=== PATIENT | male | born 1930 | race Caucasian/White ===

== ENCOUNTER 2017-01-05 19:09 | Inpatient (IN) | payer MEDICARE, BC ==
[~2017-01-05] VITALS: Ht 177.8 cm; Wt 50.1 kg
--- NOTE | ~2017-01-05 | DS ---
Discharge Summary [facility] [address] [place]. [address] NAME: CURTIS SOLIS : 34 STATUS : ADM IN [facility]#: [id number] AGE: 86 ADM/REG DATE : 01/05/17 MR#: [id number] REPORT SERV DATE: 01/07/17 DICTATED BY: LAVINIA BUSTOS DATE: 01/07/17 REPORT STATUS : Draft TRANSCRIBED BY: MODL DATE: 01/07/17 ADMISSION DATE: 01/05/2017 DISCHARGE DATE: 01/07/2017 DISCHARGE DIAGNOSES: 1. Acute kidney injury on chronic kidney disease, improved back to his baseline with gentle hydration. 2. Dehydration. 3. Hypertension. 4. Hematuria on the urinalysis. Has no pain or no evidence of infection. The patient will need a benefit from Urology evaluation. HISTORY OF PRESENT ILLNESS: This is an 86-year-old male patient who came to the hospital with severe weakness. Please see dictated H and P. HOSPITAL COURSE: He was admitted to hospital with acute kidney injury with generalized weakness. Please see dictated H and P. The patient was admitted to hospital and improved with gentle hydration. He also evaluated with echocardiogram and renal ultrasound, which was all negative for any acute disease. However, the patient had an episode of hypertension and received hydralazine. After that, he had a very severe reaction to it including short of breath and restless. But it eventually cleared out by himself. However, at night he was a little bit anxious mood because of the different surrounding and he was given a small dose, 0.5 mg IV of Ativan and that made him very agitated and almost hallucinating. However, it is cleared by himself without any problems. At this current point of discharge, the patient is awake, alert, not in acute distress, and he is oriented x3. Therefore, we are going to put hydralazine and Ativan to his allergy list because of the intolerance for the future use. I explained to the family and the patient and they all voiced understanding. DISCHARGE MEDICATIONS: 1. Continue vitamin D once a day. 2. Simvastatin 40 mg once at nighttime. 3. Finasteride 5 mg once at nighttime. 4. Megace 800 mg once a day. 5. Plavix 75 mg once a day. DISPOSITION: The patient is discharged to home in stable condition. TIME SPENT: More than 30 minutes in patient education and discharge coordination. EKL/MODL Discharge Summary [place] [address] [place] [id number] NAME: CURTIS SOLIS : 32 STATUS : ADM IN [facility]#: [id number] AGE: 86 ADM/REG DATE : 01/05/17 MR#: [id number] REPORT SERV DATE: 01/07/17 DICTATED BY: LAVINIA BUSTOS DATE: 01/07/17 REPORT STATUS : Draft TRANSCRIBED BY: MODL DATE: 01/07/17 Lavinia Bustos M.D. / [id number] CC: Jesse Irvin M.D.
--- NOTE | ~2017-01-05 | HP ---
History And Physical [place] [id number] [facility] [place]. [address] NAME: CURTIS SOLIS : 34 STATUS : ADM IN [facility]#: [id number] AGE: 86 ADM/REG DATE : 01/05/17 MR#: [id number] REPORT SERV DATE: 01/06/17 DICTATED BY: ALESSANDRA LAUREANO DATE: 01/05/17 REPORT STATUS : Draft TRANSCRIBED BY: MODL DATE: 01/05/17 DATE OF ADMISSION: 01/05/2017 CHIEF COMPLAINT: Weakness. HISTORY OF PRESENT ILLNESS: The patient is an 86-year-old white male, history of CVA in distant past, who comes in complaining of increasing weakness, back pain, and decreased appetite over the past three weeks. He came in this morning with these complaints and was sent home with an unremarkable workup. He came back today, feeling weaker, and was noted to be somewhat hypotensive with a systolic blood pressure in the 90s and with also complaint of back pain, and his creatinine had increased from this morning his creatinine was 1.56 and today it had risen to 2.27. The patient denies nausea, vomiting, and diarrhea. He has eaten very little for past three weeks per his family. He has also been a lot less ambulatory. He does state he urinates every 2 hours. However, bladder scan revealed low bladder volume of 125 mL. 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 PAST SURGICAL HISTORY: Tonsillectomy, appendectomy, hernia repair, back surgery, CABG in 1992. SOCIAL HISTORY: He does not currently smoke or drink. Lives with his . He is a full code. FAMILY HISTORY: Both mom and dad of CVA. ALLERGIES: THE PATIENT IS ALLERGIC TO DEMEROL, "DID NOT WORK." MEDICATIONS: Methadone, B12 3000 a day, D3 2000 a day, Zocor 40 mg at bedtime, Plavix 75 mg daily, Flomax "prostate pill" daily, and Megace daily. REVIEW OF SYSTEMS: CONSTITUTIONAL: There are no fever, sweats, or rigors. He does have macular degeneration, so he has had visual acuity loss and poor vision. HEENT: No headache. There is some hearing loss. No tinnitus. CARDIOVASCULAR: No chest pain, palpitations, syncope. No edema. There is a lot of fatigue on exertion. RESPIRATORY: No cough, wheezing, or pleuritic pain. GASTROINTESTINAL: No nausea, vomiting, hematemesis, or abdominal pain. MUSCULOSKELETAL: There are arthralgias, arthritis, and back pain. INTEGUMENT: No rash or suspicious skin lesions. NEUROLOGIC: Denies memory loss. There have been gait disturbance and weakness. HEMATOLOGIC: No anemia, iron deficiency, or B12 deficiency. PSYCHIATRIC: There has been some depression. No bipolar or anxiety. : No dysuria or hematuria. There has been some frequent urination. History And Physical [address] [address] NAME: CURTIS SOLIS : 34 STATUS : ADM IN [facility]#: [id number] AGE: 86 ADM/REG DATE : 01/05/17 MR#: [id number] REPORT SERV DATE: 01/06/17 DICTATED BY: ALESSANDRA LAUREANO DATE: 01/05/17 REPORT STATUS : Draft TRANSCRIBED BY: SHAMA DATE: 01/05/17 ENDOCRINE: There is no diabetes. No known thyroid disease. There is a history of increased cholesterol. PHYSICAL EXAMINATION: VITAL SIGNS: Blood pressure is 90/51, note he is not orthostatic. Temperature 98, pulse 98, respiration 18, O2 saturation 96% on room air. CONSTITUTIONAL: Alert, appropriate. PSYCHIATRIC: Oriented x3. Memory intact. Affect appropriate. HEENT: Atraumatic, normocephalic. Oral palate without lesion. EYES: Pupils are reactive, anicteric. NECK: No adenopathy. Supple. No thyromegaly or masses. RESPIRATORY: Clear to percussion and auscultation. CARDIOVASCULAR: Regular rate and rhythm. No audible murmurs. ABDOMEN: Soft, nontender, nondistended. SKIN: No rash or suspicious lesions. He does have a small bruise on his left hip from prior fall. NEUROLOGIC: The patient can move all four extremities. LYMPHATIC: No adenopathy in the neck, axilla, or femoral region. No peripheral edema. MUSCULOSKELETAL: Range of motion intact in upper and lower extremities. LABORATORY DATA: White count 14.4, hemoglobin 13.7, platelet 291. Sodium 139, potassium 4, BUN 39, creatinine 2.27, glucose 135. Troponin 0.03. Mag 2.4. Urinalysis, unremarkable. Chest x-ray, unremarkable. IMPRESSION/PLAN: 1. Acute renal failure secondary to dehydration, although the patient did get one dose of lisinopril on his past ER visit. We will give IV fluids. We will obtain renal ultrasound. He was not retaining urine. 2. Fatigue. 3. History of cerebrovascular accident. 4. Anorexia. 5. Weakness. Order physical therapy. 6. Back pain. Lumbar CT was unrevealing except for arthritis. NGM/MODL Alessandra Laureano MD / [id number] CC: Jesse Irvin M.D.
[~2017-01-05 19:09] MED LIST: LORTAB 5 PO; PLAVIX PO; PRIN20 PO; ZOCOR40 PO
[2017-01-05 21:20] LABS: BASOPHILS 0.1 %; BASOPHILS ABSOLUTE 0.01 10/3/uL (0.0-0.16); EOSINOPHILS 1.7 %; EOSINOPHILS ABSOLUTE 0.25 10/3/uL (0.0-0.53); ER CBC TAT 0 Hrs 03 Mins; HEMATOCRIT 39.5 % (40.0-51.0); HEMOGLOBIN 13.7 g/dL (13.6-17.8); IMMATURE GRANULOCYTES 0.6 %; IMMATURE GRANULOCYTES ABSOLUTE 0.09 10/3/uL (0.0-0.11); LYMPHOCYTES 13.4 %; LYMPHOCYTES ABSOLUTE 1.93 10/3/uL (0.67-4.30); MEAN CORPUS HGB CONC 34.7 g/dL (32.0-36.0); MEAN CORPUSCULAR HEMOGLOB 33.8 pg (26.0-34.0); MEAN CORPUSCULAR VOLUME 97.5 fL (80-100); MEAN PLATELET VOLUME 10.4 fL (9.2-13.0); MONOCYTES 11.8 %; NEUTROPHILS 72.4 %; NEUTROPHILS ABSOLUTE 10.46 10/3/uL (2.02-8.40); PLATELET COUNT 291 10/3/uL (150-400); RBC DISTRIBUTION WIDTH 12.3 % (12.0-16.0); RED CELL COUNT 4.05 10/6/uL (4.7-6.1); WHITE BLOOD CELLS 14.4 10/3/uL (4.5-10.5)
[2017-01-05 21:24] LABS: MANUAL DIFF NO %
[2017-01-05 21:27] LABS: PROTIME (NOT ORD) 13.1 SEC (12.0-14.5)
[2017-01-05 21:36] LABS: BUN (BLOOD UREA NITROGEN) 39 MG/DL (6-23); CALCIUM, SERUM 9.4 MG/DL (8.5-10.4); CHEST PAIN PROFILE TAT 0 Hrs 19 Mins; CHLORIDE, SERUM 102 MMOL/L (96-112); CO2 (CARBON DIOXIDE) 27 MMOL/L (24-34); CPK 44 U/L (0-200); CREATININE 2.27 MG/DL (0.70-1.30); GFR AFRICAN AMERICAN 30 ML/MIN (>=60); GFR NON AFRICAN AMERICAN 26 ML/MIN (>=60); GLUCOSE, SERUM 135 MG/DL (60-99); SODIUM, SERUM 139 MMOL/L (135-148); TROPONIN I 0.03 NG/ML (<0.05)
[2017-01-05] MEDS ORDERED: PLAVIX PO (22:22)
[2017-01-05] MEDS ORDERED: ZOCOR40 PO (22:23)
[2017-01-05] MEDS ORDERED: PROSCAR5 PO (22:23)
[2017-01-05] MEDS ORDERED: MEGACEUDL PO (22:24)
[2017-01-05] MEDS ORDERED: CYANO1000T PO (22:24)
[2017-01-05] MEDS ORDERED: VITAMIN D31000 UNIT PO (22:25)
[2017-01-06 05:22] LABS: BASOPHILS 0.2 %; BASOPHILS ABSOLUTE 0.02 10/3/uL (0.0-0.16); EOSINOPHILS 2.2 %; EOSINOPHILS ABSOLUTE 0.26 10/3/uL (0.0-0.53); IMMATURE GRANULOCYTES 0.7 %; IMMATURE GRANULOCYTES ABSOLUTE 0.09 10/3/uL (0.0-0.11); LYMPHOCYTES 13.9 %; LYMPHOCYTES ABSOLUTE 1.68 10/3/uL (0.67-4.30); MEAN CORPUS HGB CONC 33.8 g/dL (32.0-36.0); MEAN CORPUSCULAR VOLUME 97.5 fL (80-100); MEAN PLATELET VOLUME 10.8 fL (9.2-13.0); MONOCYTES 13.9 %; MONOCYTES ABSOLUTE 1.68 10/3/uL (0.21-1.20); NEUTROPHILS 69.1 %; NEUTROPHILS ABSOLUTE 8.34 10/3/uL (2.02-8.40); PLATELET COUNT 249 10/3/uL (150-400); RBC DISTRIBUTION WIDTH 12.7 % (12.0-16.0); RED CELL COUNT 3.64 10/6/uL (4.7-6.1); WHITE BLOOD CELLS 12.1 10/3/uL (4.5-10.5)
[2017-01-06 05:24] LABS: HEMATOCRIT 35.5 % (40.0-51.0); MANUAL DIFF NO %
[2017-01-06 05:34] LABS: CALCIUM, SERUM 8.9 MG/DL (8.5-10.4); CHLORIDE, SERUM 109 MMOL/L (96-112); CO2 (CARBON DIOXIDE) 23 MMOL/L (24-34); GLUCOSE, SERUM 110 MG/DL (60-99); POTASSIUM, SERUM 4.4 MMOL/L (3.5-5.3); SGOT(AST) 12 U/L (5-40); SGPT(ALT) 24 U/L (5-65); SODIUM, SERUM 139 MMOL/L (135-148); TOTAL BILIRUBIN 0.4 MG/DL (0-1.2)
[2017-01-06 05:37] LABS: A/G RATIO 1.2 (0.7-1.9); ALBUMIN 3.2 G/DL (3.5-5.0); ALKALINE PHOSPHATASE 47 U/L (45-117); BUN (BLOOD UREA NITROGEN) 35 MG/DL (6-23); GFR AFRICAN AMERICAN 42 ML/MIN (>=60); GFR NON AFRICAN AMERICAN 36 ML/MIN (>=60); GLOBULIN 2.7 G/DL (2.5-4.1); TOTAL PROTEIN 5.9 G/DL (6.0-8.5)
[2017-01-06 06:52] LABS: SED RATE 8 MM/HR (0-15)
[2017-01-07 02:07] LABS: ASCORBIC ACID (UR NOT ORDER) NEG (NEG); BILIRUBIN, URINE NEGATIVE (NEG); KETONE, URINE NEGATIVE (NEG); LEUKOCYTE ESTERASE(NOT OR NEG (NEG); WBC (NOT ORDERED) (RFLEX) 0 (0-5)
[2017-01-07 05:45] LABS: BASOPHILS 0.1 %; BASOPHILS ABSOLUTE 0.01 10/3/uL (0.0-0.16); EOSINOPHILS 3.6 %; EOSINOPHILS ABSOLUTE 0.35 10/3/uL (0.0-0.53); HEMATOCRIT 34.8 % (40.0-51.0); HEMOGLOBIN 11.9 g/dL (13.6-17.8); IMMATURE GRANULOCYTES 0.6 %; IMMATURE GRANULOCYTES ABSOLUTE 0.06 10/3/uL (0.0-0.11); LYMPHOCYTES 17.1 %; LYMPHOCYTES ABSOLUTE 1.68 10/3/uL (0.67-4.30); MEAN CORPUS HGB CONC 34.2 g/dL (32.0-36.0); MEAN CORPUSCULAR VOLUME 96.4 fL (80-100); MEAN PLATELET VOLUME 10.4 fL (9.2-13.0); MONOCYTES 12.5 %; MONOCYTES ABSOLUTE 1.23 10/3/uL (0.21-1.20); NEUTROPHILS 66.1 %; NEUTROPHILS ABSOLUTE 6.51 10/3/uL (2.02-8.40); PLATELET COUNT 246 10/3/uL (150-400); RBC DISTRIBUTION WIDTH 12.5 % (12.0-16.0); RED CELL COUNT 3.61 10/6/uL (4.7-6.1); WHITE BLOOD CELLS 9.8 10/3/uL (4.5-10.5)
[2017-01-07 05:50] LABS: MANUAL DIFF NO %
[2017-01-07 05:56] LABS: CALCIUM, SERUM 8.8 MG/DL (8.5-10.4); CHLORIDE, SERUM 105 MMOL/L (96-112); GFR AFRICAN AMERICAN 45 ML/MIN (>=60); GFR NON AFRICAN AMERICAN 39 ML/MIN (>=60); GLUCOSE, SERUM 103 MG/DL (60-99); POTASSIUM, SERUM 4.4 MMOL/L (3.5-5.3); SODIUM, SERUM 138 MMOL/L (135-148)
[2017-01-07 05:58] LABS: BUN (BLOOD UREA NITROGEN) 26 MG/DL (6-23); CO2 (CARBON DIOXIDE) 28 MMOL/L (24-34)
[2017-01-07 06:14] LABS: PROCALCITONIN 0.06 ng/mL (<0.5)
== END 2017-01-07 16:10 | disposition home or self-care (01) | DRG 683 ==
LOC: ER 19:09 → 2SO 23:54
PROVIDERS: Hospitalist; Internal Medicine
DX: N17.9 Acute kidney failure, unspecified (principal); Z68.1 Body mass index [BMI] 19.9 or less, adult; E86.0 Dehydration; R63.0 Anorexia; I10 Essential (primary) hypertension; M54.9 Dorsalgia, unspecified; H35.30 Unspecified macular degeneration; M46.96 Unspecified inflammatory spondylopathy, lumbar region; N40.0 Benign prostatic hyperplasia without lower urinary tract symptoms; Z82.3 Family history of stroke; Z88.5 Allergy status to narcotic agent; Z86.73 Personal history of transient ischemic attack (TIA), and cerebral infarction without residual deficits; Z98.890 Other specified postprocedural states
CPT/HCPCS: 72128; 72131; 76775; 80048; 80053; 81001; 82550; 83735; 84134; 84145; 84443; 84484; 85025; 85610; 85652; 85730; 93005; 93306; A9270-GY; J0360